=== PATIENT | male | born 1960 | race African-American/Black ===

== ENCOUNTER 2019-11-20 15:21 | Emergency (ER) | payer BC, OTHER ==
[~2019-11-20] VITALS: Ht 188 cm; Wt 154.2 kg
[~2019-11-20 15:21] MED LIST: DIABETA 5MG TABL5 MG PO; LORTAB 7.5/5001 TA1 PO; OXYCONTIN10 MG PO
[2019-11-20] MEDS ORDERED: HUMULIN 70100 UNIT/2 SUBQ (15:48)
[2019-11-20] MEDS ORDERED: MOBIC7.5 MG PO (15:49)
[2019-11-20] MEDS ORDERED: CARVEDILOL12.5 MG PO (15:49)
[2019-11-20] MEDS ORDERED: PRAVASTATIN SOD20 MG PO (15:49)
[2019-11-20] MEDS ORDERED: NEURONTIN300 MG PO (15:49)
[2019-11-20] MEDS ORDERED: AMLODIPINE BESY10 MG PO (15:50)
[2019-11-20] MEDS ORDERED: ASA81BEC PO (15:50)
[2019-11-20] MEDS ORDERED: ULTRAM 50MG TAB50 MG PO (15:50)
[2019-11-20] MEDS ORDERED: GLIMEPIRIDE4 MG PO (15:50)
[2019-11-20] MEDS ORDERED: DIOVAN 80 MG TA80 M1 PO (15:51)
[2019-11-20] MEDS ORDERED: METFORMIN HCL500 MG PO (15:51)
[2019-11-20] MEDS ORDERED: OMEPRAZOLE40 MG PO (16:09)
[2019-11-20 16:13] LABS: ABSOLUTE NEUTROPHILS 3.1 thou/uL (1.4-8.2); BASOPHILS 0.7 % (0.0-2.0); HEMATOCRIT 49.3 % (42.0-52.0); HEMOGLOBIN 16.3 gm/dL (14.0-18.0); LYMPHOCYTES 42.2 % (24.0-44.0); MCH 29.4 pg (26.0-34.0); MCV 89.1 fL (80.0-100.0); PLATELET COUNT 302 thou/uL (150-400); POLYS 48.1 % (36.0-66.0); RBC 5.54 mil/uL (4.50-6.00); RDW 14.5 % (10.5-14.5); WBC 6.4 thou/uL (4.0-11.0)
[2019-11-20 16:14] LABS: ANION GAP 9 mmol/L (7-16); BUN 19 mg/dL (7-18); CALCIUM 10.2 mg/dL (8.5-10.1); CHLORIDE 100 mmol/L (98-107); CO2 29 mmol/L (21-32); GLUCOSE 188 mg/dL (74-106); POTASSIUM 4.6 mmol/L (3.5-5.1); SODIUM 138 mmol/L (136-145)
[2019-11-20 16:23] LABS: TROPONIN-I <0.06 ng/mL (<0.06)
[2019-11-20] MEDS ORDERED: NAPROSYN500 MG PO (17:20)
[2019-11-20 17:50] VITALS: BP 143/88
--- NOTE | 2019-11-21 07:56 | EKG ---
[facility] [place] [address] ELECTROCARDIOGRAM REPORT Name: WILLIAM MACIAS Room #: DEP [facility]#: [id number] Admission: 11/20/19 Attend Phys: Discharge: 11/20/19 Date of : 64 Report #: [id number] THIS REPORT FOR: cc: Skye Vasquez K. Steven DO Lundgren, Craig H. MD [facility] THIS REPORT FOR: //name// [facility] ED Test Date: 2019-11-20 Test Time: 16:17:29 Pat Name: WILLIAM MACIAS Department: Room: Gender: [employer] Teacher: [facility] : [id number] Requested By: Alvaro Meza Order Number: [id number] MD: Nasir Juan Measurements Intervals Hunt Rate: 91 P: 55 [place]: 174 QRS: 8 QRSD: 93 T: 23 QT: 335 QTc: 413 Interpretive Statements Sinus rhythm Normal tracing No previous ECG available for comparison Electronically Signed On 11-21-2019 7:55:12 CDT by Nasir Juan [email or web address] <ELECTRONICALLY SIGNED> By: Nasir Juan MD, FAC 11/21/19 [id number] Nasir Juan MD, [facility] /EPI
== END 2019-11-20 17:47 | disposition home or self-care (01) ==
LOC: ER 15:21
PROVIDERS: Emergency Medicine
DX: R07.89 Other chest pain (principal); I10 Essential (primary) hypertension; E11.9 Type 2 diabetes mellitus without complications; Z79.899 Other long term (current) drug therapy

== ENCOUNTER 2020-02-12 08:37 | Emergency (ER) | payer BC, OTHER ==
[~2020-02-12] VITALS: Ht 188 cm; Wt 158.8 kg
[~2020-02-12 08:37] MED LIST changes: +AMLODIPINE BESY10 MG PO; +ASA81BEC PO; +CARVEDILOL12.5 MG PO; +DIOVAN 80 MG TA80 M1 PO; +GLIMEPIRIDE4 MG PO; +HUMULIN 70100 UNIT/2 SUBQ; +METFORMIN HCL500 MG PO; +MOBIC7.5 MG PO; +NAPROSYN500 MG PO; +NEURONTIN300 MG PO; +OMEPRAZOLE40 MG PO; +PRAVASTATIN SOD20 MG PO; +ULTRAM 50MG TAB50 MG PO
[2020-02-12] MEDS ORDERED: COZAAR 25 MG TA25 M1 PO (08:46)
[2020-02-12] MEDS ORDERED: SENNA-DOCUSATE1 EAC1 PO (09:52)
[2020-02-12] MEDS ORDERED: NORCO 7.5-3251 EACH PO (09:52)
[2020-02-12 10:10] VITALS: BP 117/69
== END 2020-02-12 10:18 | disposition home or self-care (01) ==
LOC: ER 08:37
DX: M25.552 Pain in left hip (principal); R22.41 Localized swelling, mass and lump, right lower limb; F17.210 Nicotine dependence, cigarettes, uncomplicated; I10 Essential (primary) hypertension; E11.9 Type 2 diabetes mellitus without complications; Z79.4 Long term (current) use of insulin; Z79.899 Other long term (current) drug therapy